=== PATIENT | female | born 1945 | race African-American/Black ===

== ENCOUNTER 2017-08-17 11:50 | Outpatient (CLI) | payer MEDICARE, BC | END 2017-08-17 11:51 | disposition home or self-care (01) | LOC: BICMAMMO 11:50 | PROVIDERS: ATTEND Internal Medicine | DX: Z12.31 Encounter for screening mammogram for malignant neoplasm of breast (principal) | CPT/HCPCS: 77063; 77067 ==

== ENCOUNTER → 2017-09-26 | Day surgery (SDC) | payer MEDICARE, BC ==
[~2017-09-26] MED LIST: Proparacaine 0.5% Opth 15 ML BOT ONE
== END ==
LOC: SDC 11:10
PROVIDERS: ATTEND Ophthalmology
PROC: 089D3ZZ Drainage of Left Iris, Percutaneous Approach (ICD-10-PCS; principal; 2017-09-26)
PROC: 089C3ZZ Drainage of Right Iris, Percutaneous Approach (ICD-10-PCS; 2017-09-26)
DX: H40.033 Anatomical narrow angle, bilateral (principal); I10 Essential (primary) hypertension; E11.9 Type 2 diabetes mellitus without complications; H40.9 Unspecified glaucoma; Z88.2 Allergy status to sulfonamides; Z79.4 Long term (current) use of insulin; Z79.82 Long term (current) use of aspirin; Z79.899 Other long term (current) drug therapy

== ENCOUNTER 2017-12-20 09:37 | Outpatient (CLI) | payer MEDICARE, BC ==
--- NOTE | 2017-12-20 11:11 | CT ---
BRAIN CT WITHOUT IV CONTRAST: History: 72-year-old female with history of dizziness and headaches, bilateral ear aches. FINDINGS: No focal mass or midline shift. No intra or extraaxial hemorrhage. Sinuses and mastoids are clear of acute process. IMPRESSION: No acute intracranial process. No mass or bleed. POS: [facility]
== END 2017-12-20 09:38 | disposition home or self-care (01) ==
LOC: CT 09:37
PROVIDERS: ATTEND Internal Medicine
DX: R42 Dizziness and giddiness (principal)
CPT/HCPCS: 70450

== ENCOUNTER 2022-08-29 14:06 | Outpatient (CLI) | payer MEDICARE, BC | END 2022-08-29 14:07 | disposition home or self-care (01) | LOC: BICMAMMO 14:06 | PROVIDERS: ATTEND Internal Medicine | DX: Z12.31 Encounter for screening mammogram for malignant neoplasm of breast (principal) | CPT/HCPCS: 77063; 77067 ==

== ENCOUNTER 2023-09-16 13:52 | Inpatient (IN) | payer MEDICARE ==
[2023-09-16] MEDS ORDERED: Cefepime 2 GM VIAL ONE (15:00)
[2023-09-16] MEDS ORDERED: Sodium Chloride 0.9% 100 ML ONE (15:00)
[2023-09-16] MEDS ORDERED: Morphine 4 MG/ML VIAL ONE (15:00)
[2023-09-16] MEDS ORDERED: Ondansetron PF 4 MG/2 ML Vial ONE (15:00)
[2023-09-16 15:56] LABS: ALT (SGPT) 16 U/L (8-55); AST (SGOT) 20 U/L (5-34); Albumin 3.5 g/dL (3.4-4.8); Alkaline Phosphatase 107 U/L (40-110); Anion Gap 17 mmol/L (10-20); BUN (Urea Nitrogen) 12 mg/dL (9.8-20.1); Bilirubin, Total 0.4 mg/dL (0.2-1.2); Calc. Creatinine Clearance 0 mL/min (70-130); Calcium 10.1 mg/dL (7.8-10.44); Carbon Dioxide 20 mmol/L (23-31); Chloride 106 mmol/L (98-107); Estimated GFR 85; Globulin 4.4 g/dL (2.4-3.5); Glucose 124 mg/dL (83-110); Potassium 3.7 mmol/L (3.5-5.1); Protein, Total 7.9 g/dL (5.8-8.1); Sodium 139 mmol/L (136-145)
[2023-09-16 16:11] LABS: #Basophils 0.04 10x3/uL (0.0-0.2); %Basophils 0.5 % (0.0-1.0); %Eosinophils 4.7 % (0.0-10.0); %Lymphocytes 18.9 % (21.0-51.0); %Monocytes 10.9 % (0.0-10.0); %Neutrophils 64.7 % (42.0-75.0); Hematocrit 39.6 % (36.0-47.0); Hemoglobin 13.3 g/dL (12.0-16.0); Mean Corpuscular HGB CONC 33.6 g/dL (32.0-36.0); Mean Corpuscular Hemoglobin 29.7 pg (27.0-31.0); Mean Corpuscular Volume 88.4 fL (78.0-98.0); Mean Platelet Volume 8.9 fL (7.4-10.4); Platelet Count 274 10x3/uL (130-400); Red Blood Cell (RBC) Count 4.48 mill/uL (4.20-5.40)
[2023-09-16] MEDS ORDERED: Acetaminophen 650 MG Suppository PR PRN (18:08)
[2023-09-16] MEDS ORDERED: Dextrose 5% in Water 1,000 ML IV PRN (18:08)
[2023-09-16] MEDS ORDERED: Glucagon 1 MG/ML KIT IM PRN (18:08)
[2023-09-16] MEDS: Vancomycin (BATCH) 1.75 GM in Premix 1 BAG IVPB SCH (19:28)
[2023-09-16 19:38] LABS: INR-International Normal Ratio 0.9; Prothrombin Time 12.2 sec (12.0-14.7)
[2023-09-16 19:46] LABS: PTT 21.3 sec (22.9-36.1)
[2023-09-16] MEDS: Furosemide 40 MG (4 mL) VIAL SLOW IVP SCH (20:33)
[2023-09-16] MEDS: metroNIDAZOLE 500 MG in Premix 1 BAG IVPB SCH (20:33)
[2023-09-16] MEDS: Oxybutynin ER 5 MG TAB PO SCH (21:49)
[2023-09-16] MEDS: Pregabalin 50 MG CAP PO SCH (21:50)
[2023-09-16] MEDS: Lorazepam 0.5 MG TAB PO SCH (21:50)
[2023-09-16] MEDS: OLANZapine 2.5 MG TAB PO SCH (21:50)
[2023-09-16] MEDS: HumaLOG 300 UNITS/3 ML VIAL SC PRN (21:51)
[2023-09-16] MEDS: Insulin Glargine 30 UNITS/0.3 ML VIAL SC SCH (22:24)
[2023-09-17] MEDS: Cefepime 2 GM in Sodium Chloride 0.9% 100 ML IVPB SCH (03:02)
[2023-09-17 06:59] LABS: #Basophils 0.03 10x3/uL (0.0-0.2); %Basophils 0.5 % (0.0-1.0); %Lymphocytes 26.1 % (21.0-51.0); %Monocytes 13.5 % (0.0-10.0); %Neutrophils 54.6 % (42.0-75.0); Hematocrit 43.8 % (36.0-47.0); Hemoglobin 14.4 g/dL (12.0-16.0); Mean Corpuscular HGB CONC 32.9 g/dL (32.0-36.0); Mean Corpuscular Hemoglobin 29.4 pg (27.0-31.0); Mean Corpuscular Volume 89.6 fL (78.0-98.0); Mean Platelet Volume 9.3 fL (7.4-10.4); Platelet Count 229 10x3/uL (130-400); RBC Distribution Width 13.2 % (11.5-14.5); Red Blood Cell (RBC) Count 4.89 mill/uL (4.20-5.40)
[2023-09-17 07:06] LABS: Anion Gap 15 mmol/L (10-20); BUN (Urea Nitrogen) 10 mg/dL (9.8-20.1); Calc. Creatinine Clearance 104 mL/min (70-130); Calcium 9.7 mg/dL (7.8-10.44); Carbon Dioxide 22 mmol/L (23-31); Chloride 108 mmol/L (98-107); Estimated GFR 91; Glucose 77 mg/dL (83-110); Magnesium 1.9 mg/dL (1.6-2.6); Potassium 3.7 mmol/L (3.5-5.1); Sodium 141 mmol/L (136-145)
[2023-09-17] MEDS ORDERED: Insulin Glargine 30 UNITS/0.3 ML VIAL SC SCH (07:30)
[2023-09-17] MEDS: Insulin Glargine 30 UNITS/0.3 ML VIAL SC SCH (08:07)
[2023-09-17] MEDS: Lorazepam 1 MG TAB PO SCH (10:06)
[2023-09-17] MEDS: PARoxetine 20 MG TAB PO SCH (10:06)
[2023-09-17] MEDS: Amlodipine 10 MG TAB PO SCH (10:06)
[2023-09-17] MEDS: Atorvastatin Calcium 10 MG TAB PO SCH (10:07)
[2023-09-17] MEDS: HumaLOG 300 UNITS/3 ML VIAL SC PRN (13:58)
[2023-09-17 14:10] LABS: Hemoglobin A1c 6.5 % (4.0-6.0)
[2023-09-18] MEDS: Enoxaparin 40 MG (0.4 mL) SYRINGE SC SCH (08:41)
[2023-09-18] MEDS: Acetaminophen 325 MG TAB PO PRN (09:44)
[2023-09-19] MEDS ORDERED: Polyvinyl Alcohol 1.4%/Povidone 0.6% Opth Drops EA EYE PRN (19:32)
[2023-09-19] MEDS: Ondansetron ODT 4 MG TAB PO PRN (19:48)
[2023-09-19] MEDS: Ciprofloxacin 500 MG TAB PO SCH (20:01)
[2023-09-19] MEDS: DorzolamidE/Timolol 2%/0.5% Ophth Soln 10 ml Bottle EA EYE SCH (20:03)
[2023-09-19] MEDS: Linezolid 600 MG TAB PO SCH (20:03)
[2023-09-19] MEDS: Docusate 100 MG CAP PO SCH (20:03)
[2023-09-19] MEDS: Latanoprost 0.005% Ophth Soln 2.5 ml Bottle EA EYE SCH (20:04)
[2023-09-19] MEDS: Ipratropium Bromide 0.06% Nasal Inhaler 15ml EA NARE SCH (20:04)
[2023-09-19] MEDS: Azelastine 137 MCG/NASAL Spray 30 ML NS SCH (22:39)
[2023-09-19] MEDS: Mag-Al Plus 1200/1200/120 MG (30 mL) UDCUP PO PRN (23:50)
[2023-09-20] MEDS: Ondansetron PF 4 MG/2 ML Vial IVP PRN (01:14)
[2023-09-20] MEDS: Polyethylene Glycol 3350 17 GM Packet PO PRN (02:35)
[2023-09-20] MEDS: Mineral Oil ENEMA PR SCH (12:06)
[2023-09-21] MEDS: Ipratropium Bromide 0.06% Nasal Inhaler 15ml EA NARE SCH (08:35)
[2023-09-21] MEDS: DorzolamidE/Timolol 2%/0.5% Ophth Soln 10 ml Bottle EA EYE SCH (08:35)
[2023-09-21 10:29] LABS: ALT (SGPT) 21 U/L (8-55); AST (SGOT) 28 U/L (5-34); Albumin 3.5 g/dL (3.4-4.8); Alkaline Phosphatase 92 U/L (40-110); Anion Gap 16 mmol/L (10-20); BUN (Urea Nitrogen) 28 mg/dL (9.8-20.1); Bilirubin, Total 0.5 mg/dL (0.2-1.2); Calc. Creatinine Clearance 78 mL/min (70-130); Calcium 10.5 mg/dL (7.8-10.44); Carbon Dioxide 23 mmol/L (23-31); Chloride 90 mmol/L (98-107); Estimated GFR 69; Globulin 4.8 g/dL (2.4-3.5); Glucose 194 mg/dL (83-110); Potassium 4.6 mmol/L (3.5-5.1); Protein, Total 8.3 g/dL (5.8-8.1); Sodium 124 mmol/L (136-145)
[2023-09-21 10:36] LABS: #Basophils Less than 0.03 10x3/uL (0.0-0.2); %Basophils 0.1 % (0.0-1.0); %Eosinophils 0.8 % (0.0-10.0); %Monocytes 7.2 % (0.0-10.0); %Neutrophils 81.6 % (42.0-75.0); Hematocrit 47.1 % (36.0-47.0); Hemoglobin 16.1 g/dL (12.0-16.0); Mean Corpuscular HGB CONC 34.2 g/dL (32.0-36.0); Mean Corpuscular Hemoglobin 29.2 pg (27.0-31.0); Mean Corpuscular Volume 85.5 fL (78.0-98.0); Mean Platelet Volume 9.1 fL (7.4-10.4); Platelet Count 352 10x3/uL (130-400); RBC Distribution Width 12.7 % (11.5-14.5); Red Blood Cell (RBC) Count 5.51 mill/uL (4.20-5.40)
[2023-09-21] MEDS: Bisacodyl 10 MG SUPP PR PRN (11:59)
[2023-09-21] MEDS: Azelastine 137 MCG/NASAL Spray 30 ML NS SCH (16:58)
[2023-09-21] MEDS: Lactated Ringer's 1,000 ML IV SCH (19:13)
[2023-09-21] MEDS: Latanoprost 0.005% Ophth Soln 2.5 ml Bottle EA EYE SCH (22:34)
[2023-09-22 00:27] LABS: Bacteria/HPF None Seen HPF (None Seen); Bilirubin Negative (Negative); Blood, Urine Negative (Negative); Clarity Clear (Clear); Glucose, Urine (Dipstick) Normal (Negative); Ketone, Urine Negative (Negative); Leukocyte 250 Leu/uL (Negative); Nitrite Negative (Negative); Protein, Urine (Dipstick) 20 mg/dL (Neg-Trace); RBC/HPF 0-3 HPF (0-3); Urobilinogen Normal mg/dL (Less than 2); WBC/HPF 21-50 HPF (0-3)
[2023-09-22 08:03] LABS: #Basophils Less than 0.03 10x3/uL (0.0-0.2); %Basophils 0.2 % (0.0-1.0); %Lymphocytes 11.6 % (21.0-51.0); %Monocytes 10.3 % (0.0-10.0); %Neutrophils 75.7 % (42.0-75.0); Hematocrit 41.2 % (36.0-47.0); Hemoglobin 14.2 g/dL (12.0-16.0); Mean Corpuscular HGB CONC 34.5 g/dL (32.0-36.0); Mean Corpuscular Hemoglobin 29.5 pg (27.0-31.0); Mean Corpuscular Volume 85.5 fL (78.0-98.0); Mean Platelet Volume 8.8 fL (7.4-10.4); Platelet Count 339 10x3/uL (130-400); RBC Distribution Width 12.8 % (11.5-14.5); Red Blood Cell (RBC) Count 4.82 mill/uL (4.20-5.40)
[2023-09-22 08:28] LABS: Anion Gap 15 mmol/L (10-20); BUN (Urea Nitrogen) 29 mg/dL (9.8-20.1); Calc. Creatinine Clearance 83 mL/min (70-130); Carbon Dioxide 26 mmol/L (23-31); Chloride 88 mmol/L (98-107); Estimated GFR 74; Glucose 179 mg/dL (83-110); Potassium 4.7 mmol/L (3.5-5.1); Sodium 124 mmol/L (136-145)
[2023-09-22] MEDS: Sodium Chloride 0.9% 1,000 ML IV SCH (09:45)
[2023-09-22 12:48] LABS: Anion Gap 17 mmol/L (10-20); BUN (Urea Nitrogen) 31 mg/dL (9.8-20.1); Calc. Creatinine Clearance 78 mL/min (70-130); Calcium 9.8 mg/dL (7.8-10.44); Carbon Dioxide 23 mmol/L (23-31); Chloride 89 mmol/L (98-107); Estimated GFR 69; Glucose 209 mg/dL (83-110); Potassium 4.9 mmol/L (3.5-5.1); Sodium 124 mmol/L (136-145)
[2023-09-22] MEDS: Pantoprazole 40 MG VIAL IVP SCH (15:00)
[2023-09-22] MEDS: Furosemide 40 MG (4 mL) VIAL SLOW IVP SCH (15:37)
[2023-09-22 19:03] LABS: Anion Gap 16 mmol/L (10-20); BUN (Urea Nitrogen) 36 mg/dL (9.8-20.1); Calc. Creatinine Clearance 68 mL/min (70-130); Calcium 9.7 mg/dL (7.8-10.44); Carbon Dioxide 20 mmol/L (23-31); Chloride 90 mmol/L (98-107); Estimated GFR 59; Glucose 225 mg/dL (83-110); Potassium 5.2 mmol/L (3.5-5.1); Sodium 121 mmol/L (136-145)
[2023-09-22] MEDS: Pregabalin 25 MG CAP PO SCH (21:06)
[2023-09-23 06:09] LABS: Anion Gap 18 mmol/L (10-20); BUN (Urea Nitrogen) 39 mg/dL (9.8-20.1); Calc. Creatinine Clearance 69 mL/min (70-130); Calcium 10.4 mg/dL (7.8-10.44); Carbon Dioxide 24 mmol/L (23-31); Chloride 87 mmol/L (98-107); Estimated GFR 60; Glucose 154 mg/dL (83-110); Potassium 5.2 mmol/L (3.5-5.1); Sodium 124 mmol/L (136-145)
[2023-09-23] MEDS: Ipratropium/Albuterol 3 ML NEB NEB SCH (07:57)
[2023-09-23] MEDS ORDERED: Bisacodyl 10 MG SUPP PR PRN (10:35)
[2023-09-23] MEDS: Furosemide 40 MG (4 mL) VIAL SLOW IVP SCH (11:07)
[2023-09-23] MEDS: Aztreonam 1 GM in Sodium Chloride 0.9% 100 ML IVPB SCH (11:10)
[2023-09-23] MEDS: Sodium Polystyrene Sulfonate 15 GM (60 mL) BOT PO SCH (11:25)
[2023-09-23] MEDS ORDERED: Cyclobenzaprine 10 MG TAB PO PRN (18:27)
[2023-09-23] MEDS ORDERED: Polyvinyl Alcohol 1.4%/Povidone 0.6% Opth Drops EA EYE PRN (18:28)
[2023-09-24 04:03] LABS: #Basophils Less than 0.03 10x3/uL (0.0-0.2); %Basophils 0.2 % (0.0-1.0); %Eosinophils 2.5 % (0.0-10.0); %Lymphocytes 6.9 % (21.0-51.0); %Monocytes 13.6 % (0.0-10.0); %Neutrophils 76.4 % (42.0-75.0); Hemoglobin 13.4 g/dL (12.0-16.0); Mean Corpuscular HGB CONC 33.5 g/dL (32.0-36.0); Mean Corpuscular Hemoglobin 29.7 pg (27.0-31.0); Mean Corpuscular Volume 88.7 fL (78.0-98.0); Mean Platelet Volume 9.2 fL (7.4-10.4); Platelet Count 328 10x3/uL (130-400); RBC Distribution Width 12.7 % (11.5-14.5); Red Blood Cell (RBC) Count 4.51 mill/uL (4.20-5.40)
[2023-09-24 04:35] LABS: Anion Gap 20 mmol/L (10-20); BUN (Urea Nitrogen) 38 mg/dL (9.8-20.1); Calc. Creatinine Clearance 73 mL/min (70-130); Calcium 10.4 mg/dL (7.8-10.44); Carbon Dioxide 22 mmol/L (23-31); Chloride 90 mmol/L (98-107); Estimated GFR 62; Glucose 147 mg/dL (83-110); Potassium 4.5 mmol/L (3.5-5.1); Sodium 127 mmol/L (136-145)
[2023-09-24] MEDS: Bisacodyl 10 MG SUPP PR SCH (15:40)
[2023-09-24] MEDS: Labetalol HCl 100 MG/20 ML VIAL SLOW IVP PRN (21:15)
[2023-09-25 05:58] LABS: #Basophils Less than 0.03 10x3/uL (0.0-0.2); %Basophils 0.2 % (0.0-1.0); %Eosinophils 2.3 % (0.0-10.0); %Lymphocytes 6.2 % (21.0-51.0); %Monocytes 11.1 % (0.0-10.0); %Neutrophils 79.8 % (42.0-75.0); Hematocrit 39.2 % (36.0-47.0); Hemoglobin 13.4 g/dL (12.0-16.0); Mean Corpuscular HGB CONC 34.2 g/dL (32.0-36.0); Mean Corpuscular Hemoglobin 29.7 pg (27.0-31.0); Mean Corpuscular Volume 86.9 fL (78.0-98.0); Mean Platelet Volume 8.7 fL (7.4-10.4); Platelet Count 320 10x3/uL (130-400); RBC Distribution Width 12.8 % (11.5-14.5); Red Blood Cell (RBC) Count 4.51 mill/uL (4.20-5.40)
[2023-09-25 06:17] LABS: Anion Gap 18 mmol/L (10-20); BUN (Urea Nitrogen) 52 mg/dL (9.8-20.1); Calc. Creatinine Clearance 53 mL/min (70-130); Calcium 10.4 mg/dL (7.8-10.44); Carbon Dioxide 22 mmol/L (23-31); Chloride 92 mmol/L (98-107); Estimated GFR 44; Glucose 160 mg/dL (83-110); Potassium 4.8 mmol/L (3.5-5.1); Sodium 127 mmol/L (136-145)
[2023-09-25 10:56] LABS: Anion Gap 20 mmol/L (10-20); BUN (Urea Nitrogen) 54 mg/dL (9.8-20.1); Calc. Creatinine Clearance 52 mL/min (70-130); Calcium 11.1 mg/dL (7.8-10.44); Carbon Dioxide 21 mmol/L (23-31); Chloride 92 mmol/L (98-107); Estimated GFR 43; Glucose 107 mg/dL (83-110); Potassium 4.9 mmol/L (3.5-5.1); Sodium 128 mmol/L (136-145)
[2023-09-25] MEDS: Sodium Chloride 0.9% 1,000 ML IV SCH (13:07)
[2023-09-25] MEDS: Aztreonam 1 GM in Sodium Chloride 0.9% 100 ML IVPB SCH (21:11)
[2023-09-25 21:25] LABS: Anion Gap 20 mmol/L (10-20); BUN (Urea Nitrogen) 57 mg/dL (9.8-20.1); Calc. Creatinine Clearance 56 mL/min (70-130); Calcium 10.4 mg/dL (7.8-10.44); Carbon Dioxide 20 mmol/L (23-31); Chloride 94 mmol/L (98-107); Estimated GFR 47; Glucose 119 mg/dL (83-110); Potassium 4.8 mmol/L (3.5-5.1); Sodium 129 mmol/L (136-145)
[2023-09-26 05:08] LABS: #Basophils Less than 0.03 10x3/uL (0.0-0.2); %Basophils 0.2 % (0.0-1.0); %Eosinophils 2.9 % (0.0-10.0); %Lymphocytes 7.9 % (21.0-51.0); %Monocytes 10.6 % (0.0-10.0); Hematocrit 40.2 % (36.0-47.0); Hemoglobin 13.4 g/dL (12.0-16.0); Mean Corpuscular HGB CONC 33.3 g/dL (32.0-36.0); Mean Corpuscular Hemoglobin 29.3 pg (27.0-31.0); Mean Platelet Volume 8.9 fL (7.4-10.4); Platelet Count 327 10x3/uL (130-400); RBC Distribution Width 13.1 % (11.5-14.5); Red Blood Cell (RBC) Count 4.57 mill/uL (4.20-5.40)
[2023-09-26 05:41] LABS: Anion Gap 18 mmol/L (10-20); BUN (Urea Nitrogen) 56 mg/dL (9.8-20.1); Calc. Creatinine Clearance 64 mL/min (70-130); Calcium 10.2 mg/dL (7.8-10.44); Carbon Dioxide 19 mmol/L (23-31); Chloride 96 mmol/L (98-107); Estimated GFR 56; Glucose 105 mg/dL (83-110); Sodium 129 mmol/L (136-145)
[2023-09-26] MEDS: Sodium Bicarbonate Tab 325 MG TAB PO SCH (21:03)
[2023-09-27 09:49] LABS: #Basophils Less than 0.03 10x3/uL (0.0-0.2); %Basophils 0.2 % (0.0-1.0); %Eosinophils 1.8 % (0.0-10.0); %Lymphocytes 9.9 % (21.0-51.0); %Monocytes 11.7 % (0.0-10.0); %Neutrophils 75.8 % (42.0-75.0); Hematocrit 41.5 % (36.0-47.0); Hemoglobin 13.9 g/dL (12.0-16.0); Mean Corpuscular HGB CONC 33.5 g/dL (32.0-36.0); Mean Corpuscular Hemoglobin 29.1 pg (27.0-31.0); Mean Platelet Volume 8.3 fL (7.4-10.4); Platelet Count 373 10x3/uL (130-400); RBC Distribution Width 13.1 % (11.5-14.5); Red Blood Cell (RBC) Count 4.77 mill/uL (4.20-5.40)
[2023-09-27 11:22] LABS: Anion Gap 17 mmol/L (10-20); BUN (Urea Nitrogen) 70 mg/dL (9.8-20.1); Calc. Creatinine Clearance 56 mL/min (70-130); Calcium 10.6 mg/dL (7.8-10.44); Carbon Dioxide 22 mmol/L (23-31); Chloride 94 mmol/L (98-107); Estimated GFR 44; Glucose 115 mg/dL (83-110); Potassium 4.2 mmol/L (3.5-5.1); Sodium 129 mmol/L (136-145)
[2023-09-27] MEDS ORDERED: Iopamidol-370 76% 500 ML MDV (1 ML CHARGE) ONE (12:29)
[2023-09-27] MEDS: LevoFLOXacin 750 MG TAB PO SCH (16:58)
[2023-09-27 21:26] LABS: #Basophils 0.05 10x3/uL (0.0-0.2); %Basophils 0.5 % (0.0-1.0); %Eosinophils 1.5 % (0.0-10.0); %Lymphocytes 10.3 % (21.0-51.0); %Monocytes 14.7 % (0.0-10.0); %Neutrophils 72.3 % (42.0-75.0); Hematocrit 39.8 % (36.0-47.0); Hemoglobin 13.3 g/dL (12.0-16.0); Mean Corpuscular HGB CONC 33.4 g/dL (32.0-36.0); Mean Corpuscular Hemoglobin 29.1 pg (27.0-31.0); Mean Corpuscular Volume 87.1 fL (78.0-98.0); Mean Platelet Volume 8.3 fL (7.4-10.4); Platelet Count 370 10x3/uL (130-400); RBC Distribution Width 13.2 % (11.5-14.5); Red Blood Cell (RBC) Count 4.57 mill/uL (4.20-5.40)
[2023-09-27] MEDS ORDERED: Ondansetron PF 4 MG/2 ML Vial ONE (21:28)
[2023-09-27 21:35] LABS: Lactic Acid 1.1 mmol/L (0.5-2.2)
[2023-09-27 21:39] LABS: ALT (SGPT) 31 U/L (8-55); AST (SGOT) 28 U/L (5-34); Albumin 2.8 g/dL (3.4-4.8); Alkaline Phosphatase 90 U/L (40-110); Anion Gap 24 mmol/L (10-20); BUN (Urea Nitrogen) 78 mg/dL (9.8-20.1); Bilirubin, Total 0.5 mg/dL (0.2-1.2); Calc. Creatinine Clearance 50 mL/min (70-130); Calcium 9.9 mg/dL (7.8-10.44); Carbon Dioxide 15 mmol/L (23-31); Chloride 95 mmol/L (98-107); Estimated GFR 38; Globulin 5.1 g/dL (2.4-3.5); Glucose 100 mg/dL (83-110); Potassium 3.9 mmol/L (3.5-5.1); Protein, Total 7.9 g/dL (5.8-8.1); Sodium 130 mmol/L (136-145)
[2023-09-27] MEDS ORDERED: Electrolyte Replacement Protocol 1 EACH FS PRN (22:30)
[2023-09-27 23:09] LABS: Actual Bicarbonate (HCO3v) 20.3 mEq/L (22-28); Base Excess -4.4 mEq/L (-2.0 to +3.0); Calcium, Ionized (venous) 1.16 mmol/L (1.16-1.32); Chloride (VBG) 101 mmol/L (98-106); Hematocrit-VBG 42 % (36.0-47.0); Hemoglobin (Hb) 14.4 g/dL (11.7-16.1); Potassium (VBG) 3.95 mmol/L (3.70-5.30); Sodium 135 mmol/L (133-146); pH (venous) 7.362 (7.32-7.43)
[2023-09-27 23:11] LABS: Magnesium 2.6 mg/dL (1.6-2.6)
[2023-09-28 04:22] LABS: #Basophils 0.06 10x3/uL (0.0-0.2); %Basophils 0.6 % (0.0-1.0); %Eosinophils 0.9 % (0.0-10.0); %Lymphocytes 7.9 % (21.0-51.0); %Monocytes 16.9 % (0.0-10.0); %Neutrophils 73.2 % (42.0-75.0); Hemoglobin 13.3 g/dL (12.0-16.0); Mean Corpuscular HGB CONC 32.4 g/dL (32.0-36.0); Mean Corpuscular Hemoglobin 28.9 pg (27.0-31.0); Mean Corpuscular Volume 89.1 fL (78.0-98.0); Mean Platelet Volume 8.3 fL (7.4-10.4); Platelet Count 345 10x3/uL (130-400); RBC Distribution Width 13.2 % (11.5-14.5)
[2023-09-28 04:42] LABS: Anion Gap 19 mmol/L (10-20); BUN (Urea Nitrogen) 83 mg/dL (9.8-20.1); Calc. Creatinine Clearance 49 mL/min (70-130); Carbon Dioxide 19 mmol/L (23-31); Chloride 97 mmol/L (98-107); Estimated GFR 37; Glucose 93 mg/dL (83-110); Sodium 131 mmol/L (136-145)
[2023-09-28] MEDS: Enoxaparin 40 MG (0.4 mL) SYRINGE SC SCH (09:24)
[2023-09-28] MEDS: PARoxetine 20 MG TAB PO SCH (09:33)
[2023-09-28 10:10] LABS: Actual Bicarbonate (HCO3a) 21.4 mEq/L (22-28); Base Excess (BEa) -3.4 mEq/L (-2.0 to +3.0); CO2 Tension 37.7 mmHg (35.0-45.0); Calcium, Ionized (arterial) 1.22 mmol/L (1.12-1.30); Carboxyhemoglobin (COHb) 0.6 gm% (0.0-3.0); Hematocrit-ABG 37 % (36.0-47.0); Hemoglobin (Hb) 12.6 g/dL (12.0-16.0); O2 Tension (PaO2), arterial 61.8 mmHg (> 70.0); Potassium - ABG Lab 3.73 mmol/L (3.70-5.30); pH, Arterial 7.372 (7.35-7.45)
[2023-09-28 10:11] LABS: Puncture Site RRA
[2023-09-28] MEDS ORDERED: Dextrose 5%-Lactated Ringers 1,000 ML IV SCH (12:30)
[2023-09-28] MEDS: Lactated Ringer's 1,000 ML IV SCH (13:01)
[2023-09-28] MEDS: Aztreonam 1 GM in Sodium Chloride 0.9% 100 ML IVPB SCH (13:01)
[2023-09-28] MEDS: Dextrose 50% Abboject 50 ML SYRINGE SLOW IVP PRN (21:07)
[2023-09-28] MEDS: Linezolid 600 MG in Premix 1 BAG IVPB SCH (21:08)
[2023-09-28] MEDS: Metoclopramide HCl 10 MG (2 mL) VIAL IVP SCH (21:13)
[2023-09-29 04:28] LABS: Anion Gap 16 mmol/L (10-20); BUN (Urea Nitrogen) 59 mg/dL (9.8-20.1); Calc. Creatinine Clearance 66 mL/min (70-130); Calcium 9.2 mg/dL (7.8-10.44); Carbon Dioxide 22 mmol/L (23-31); Chloride 103 mmol/L (98-107); Estimated GFR 57; Glucose 100 mg/dL (83-110); Potassium 3.1 mmol/L (3.5-5.1); Sodium 138 mmol/L (136-145)
[2023-09-29 07:10] LABS: #Basophils 0.04 10x3/uL (0.0-0.2); %Basophils 0.2 % (0.0-1.0); %Eosinophils 2.2 % (0.0-10.0); %Lymphocytes 6.5 % (21.0-51.0); %Monocytes 12.6 % (0.0-10.0); %Neutrophils 76.5 % (42.0-75.0); Hematocrit 31.1 % (36.0-47.0); Hemoglobin 10.5 g/dL (12.0-16.0); Mean Corpuscular HGB CONC 33.8 g/dL (32.0-36.0); Mean Corpuscular Hemoglobin 29.9 pg (27.0-31.0); Mean Corpuscular Volume 88.6 fL (78.0-98.0); Mean Platelet Volume 8.5 fL (7.4-10.4); Platelet Count 301 10x3/uL (130-400); RBC Distribution Width 13.3 % (11.5-14.5); Red Blood Cell (RBC) Count 3.51 mill/uL (4.20-5.40)
[2023-09-29] MEDS ORDERED: Potassium Chloride 20 MEQ TAB PO SCH (08:00)
[2023-09-29] MEDS: Potassium Chloride 20 MEQ in Premix 1 BAG IVPB SCH (08:54)
[2023-09-29] MEDS ORDERED: Potassium Chloride 40 MEQ in Premix 1 BAG IVPB SCH (09:00)
[2023-09-30 05:43] LABS: Anion Gap 18 mmol/L (10-20); BUN (Urea Nitrogen) 17 mg/dL (9.8-20.1); Calc. Creatinine Clearance 96 mL/min (70-130); Calcium 8.9 mg/dL (7.8-10.44); Carbon Dioxide 20 mmol/L (23-31); Chloride 107 mmol/L (98-107); Estimated GFR 92; Glucose 142 mg/dL (83-110); Potassium 3.1 mmol/L (3.5-5.1); Sodium 142 mmol/L (136-145)
[2023-09-30 06:16] LABS: Hematocrit 31.9 % (36.0-47.0); Hemoglobin 10.8 g/dL (12.0-16.0); Mean Corpuscular HGB CONC 33.9 g/dL (32.0-36.0); Mean Corpuscular Hemoglobin 29.3 pg (27.0-31.0); Mean Corpuscular Volume 86.4 fL (78.0-98.0); Mean Platelet Volume 8.6 fL (7.4-10.4); Platelet Count 340 10x3/uL (130-400); RBC Distribution Width 13.6 % (11.5-14.5); Red Blood Cell (RBC) Count 3.69 mill/uL (4.20-5.40)
[2023-09-30 07:18] LABS: Anisocytosis MODERATE=16-30 cells HPF (0-5); Band 15 % (5-11); Burr Cells SLIGHT = 2-5 cells HPF (0-1); Eosinophils 2 % (0-10); Lymphocytes 5 % (21-51); Macrocytosis SLIGHT = 6-15 cells HPF (0-5); Monocytes 8 % (0-10); Myelocyte 1 % (0-0); Neutrophil 70 % (42-75); Platelet Adequacy Comment Platelets Normal; Polychromasia SLIGHT = 2-3 cells HPF (0-2); Smudge Cells 3.9 %
[2023-09-30] MEDS: Potassium Chloride 20 MEQ in Premix 1 BAG IVPB SCH (08:32)
[2023-09-30 09:48] LABS: Bilirubin Negative (Negative); Blood, Urine 1+ (Negative); CAUTI Indications for Culture Alt mental st,lethar; Clarity Clear (Clear); Glucose, Urine (Dipstick) Normal (Negative); Ketone, Urine 10 mg/dL (Negative); Leukocyte 25 Leu/uL (Negative); Nitrite Negative (Negative); Protein, Urine (Dipstick) 30 mg/dL (Neg-Trace); Specific Gravity, Urine 1.012 (1.002-1.036); Squamous Epithelial 0-3 HPF (0-3); Urobilinogen Normal mg/dL (Less than 2); pH, Urine 7.5 (5.0-9.0)
[2023-09-30 10:06] LABS: Bacteria/HPF Rare-Few HPF (None Seen)
[2023-09-30 10:08] LABS: Urine Culture Reflex No No
[2023-09-30] MEDS: Azithromycin 500 MG in Sodium Chloride 0.9% 250 ML 250 ML IVPB SCH (15:12)
[2023-10-01 05:18] LABS: #Basophils 0.09 10x3/uL (0.0-0.2); %Basophils 0.4 % (0.0-1.0); %Eosinophils 1.1 % (0.0-10.0); %Lymphocytes 6.6 % (21.0-51.0); %Monocytes 5.8 % (0.0-10.0); %Neutrophils 83.2 % (42.0-75.0); Hematocrit 30.9 % (36.0-47.0); Hemoglobin 10.4 g/dL (12.0-16.0); Mean Corpuscular HGB CONC 33.7 g/dL (32.0-36.0); Mean Corpuscular Hemoglobin 28.9 pg (27.0-31.0); Mean Corpuscular Volume 85.8 fL (78.0-98.0); Mean Platelet Volume 8.4 fL (7.4-10.4); Platelet Count 311 10x3/uL (130-400); RBC Distribution Width 13.8 % (11.5-14.5)
[2023-10-01 05:56] LABS: Anion Gap 14 mmol/L (10-20); BUN (Urea Nitrogen) 11 mg/dL (9.8-20.1); Calc. Creatinine Clearance 102 mL/min (70-130); Calcium 8.5 mg/dL (7.8-10.44); Carbon Dioxide 22 mmol/L (23-31); Chloride 105 mmol/L (98-107); Estimated GFR 92; Glucose 134 mg/dL (83-110); Potassium 3.4 mmol/L (3.5-5.1); Sodium 138 mmol/L (136-145)
[2023-10-01] MEDS: Potassium Chloride 20 MEQ TAB PO SCH (08:51)
[2023-10-02 07:53] LABS: Anion Gap 19 mmol/L (10-20); BUN (Urea Nitrogen) 8 mg/dL (9.8-20.1); Calc. Creatinine Clearance 118 mL/min (70-130); Calcium 8.3 mg/dL (7.8-10.44); Carbon Dioxide 21 mmol/L (23-31); Chloride 106 mmol/L (98-107); Estimated GFR 95; Glucose 112 mg/dL (83-110); Potassium 3.6 mmol/L (3.5-5.1); Sodium 142 mmol/L (136-145)
[2023-10-02 08:08] LABS: #Basophils 0.08 10x3/uL (0.0-0.2); %Basophils 0.5 % (0.0-1.0); %Monocytes 5.6 % (0.0-10.0); %Neutrophils 82.8 % (42.0-75.0); Hematocrit 36.1 % (36.0-47.0); Hemoglobin 12.5 g/dL (12.0-16.0); Mean Corpuscular HGB CONC 34.6 g/dL (32.0-36.0); Mean Corpuscular Hemoglobin 29.3 pg (27.0-31.0); Mean Corpuscular Volume 84.7 fL (78.0-98.0); Platelet Count 243 10x3/uL (130-400); Red Blood Cell (RBC) Count 4.26 mill/uL (4.20-5.40)
[2023-10-02] MEDS ORDERED: Electrolyte Replacement Protocol 1 EACH FS SCH (10:45)
[2023-10-02 11:01] LABS: Magnesium 1.1 mg/dL (1.6-2.6)
[2023-10-02] MEDS: Floranex 1 GM Packet PO SCH (13:49)
[2023-10-02] MEDS: Magnesium Sulfate In Water 4 GM in Premix 1 BAG IVPB SCH (13:59)
[2023-10-02] MEDS ORDERED: Divalproex Sodium 125 mg Sprinkle Capsule PO SCH (21:00)
[2023-10-03 05:34] LABS: #Basophils 0.05 10x3/uL (0.0-0.2); %Basophils 0.3 % (0.0-1.0); %Lymphocytes 9.6 % (21.0-51.0); %Monocytes 7.1 % (0.0-10.0); %Neutrophils 78.7 % (42.0-75.0); Hematocrit 30.4 % (36.0-47.0); Hemoglobin 10.3 g/dL (12.0-16.0); Mean Corpuscular HGB CONC 33.9 g/dL (32.0-36.0); Mean Corpuscular Hemoglobin 28.8 pg (27.0-31.0); Mean Corpuscular Volume 84.9 fL (78.0-98.0); Mean Platelet Volume 8.5 fL (7.4-10.4); Platelet Count 294 10x3/uL (130-400); Red Blood Cell (RBC) Count 3.58 mill/uL (4.20-5.40)
[2023-10-03 05:44] VITALS: BMI 31.1
[2023-10-03 06:04] LABS: Anion Gap 12 mmol/L (10-20); BUN (Urea Nitrogen) 7 mg/dL (9.8-20.1); Calc. Creatinine Clearance 115 mL/min (70-130); Calcium 8.6 mg/dL (7.8-10.44); Carbon Dioxide 23 mmol/L (23-31); Chloride 106 mmol/L (98-107); Estimated GFR 95; Glucose 108 mg/dL (83-110); Potassium 2.9 mmol/L (3.5-5.1); Sodium 138 mmol/L (136-145)
[2023-10-03] MEDS ORDERED: Potassium Chloride 20 MEQ TAB PO SCH (08:00)
[2023-10-03 08:38] LABS: Magnesium 1.9 mg/dL (1.6-2.6)
[2023-10-03] MEDS: Potassium Chloride 20 MEQ in Premix 1 BAG IVPB SCH (08:52)
[2023-10-03] MEDS: Magnesium 2 GM/50 ML(in water) 2 GM in Premix 1 BAG IVPB SCH (12:28)
[2023-10-03] MEDS ORDERED: Electrolyte Replacement Protocol 1 EACH FS SCH (13:45)
[2023-10-03 20:40] LABS: Anion Gap 16 mmol/L (10-20); BUN (Urea Nitrogen) 6 mg/dL (9.8-20.1); Calc. Creatinine Clearance 119 mL/min (70-130); Calcium 8.5 mg/dL (7.8-10.44); Carbon Dioxide 20 mmol/L (23-31); Chloride 106 mmol/L (98-107); Estimated GFR 96; Glucose 97 mg/dL (83-110); Sodium 138 mmol/L (136-145)
[2023-10-03] MEDS: Insulin Glargine 30 UNITS/0.3 ML VIAL SC SCH (21:34)
[2023-10-04 05:48] LABS: #Basophils 0.03 10x3/uL (0.0-0.2); %Basophils 0.2 % (0.0-1.0); %Eosinophils 2.1 % (0.0-10.0); %Lymphocytes 8.6 % (21.0-51.0); %Monocytes 10.1 % (0.0-10.0); Hemoglobin 10.5 g/dL (12.0-16.0); Mean Corpuscular HGB CONC 32.8 g/dL (32.0-36.0); Mean Corpuscular Volume 88.4 fL (78.0-98.0); Platelet Count 284 10x3/uL (130-400); RBC Distribution Width 14.2 % (11.5-14.5); Red Blood Cell (RBC) Count 3.62 mill/uL (4.20-5.40)
[2023-10-04 06:10] LABS: ALT (SGPT) 19 U/L (8-55); AST (SGOT) 29 U/L (5-34); Albumin 1.8 g/dL (3.4-4.8); Alkaline Phosphatase 86 U/L (40-110); Anion Gap 12 mmol/L (10-20); BUN (Urea Nitrogen) 6 mg/dL (9.8-20.1); Bilirubin, Total 0.4 mg/dL (0.2-1.2); Calc. Creatinine Clearance 119 mL/min (70-130); Calcium 8.6 mg/dL (7.8-10.44); Carbon Dioxide 25 mmol/L (23-31); Chloride 105 mmol/L (98-107); Estimated GFR 96; Globulin 4.8 g/dL (2.4-3.5); Glucose 117 mg/dL (83-110); Potassium 3.9 mmol/L (3.5-5.1); Protein, Total 6.6 g/dL (5.8-8.1); Sodium 138 mmol/L (136-145)
[2023-10-04] MEDS: D5 1/2 NS w/20 mEq KCL 1,000 ML IV SCH (10:10)
[2023-10-04] MEDS: Insulin Glargine 30 UNITS/0.3 ML VIAL SC SCH (10:12)
[2023-10-04] MEDS: LevoFLOXacin 750 MG TAB PO SCH (18:20)
[2023-10-04] MEDS ORDERED: Linezolid 600 MG TAB PO SCH (21:00)
[2023-10-05 05:40] LABS: #Basophils 0.05 10x3/uL (0.0-0.2); %Basophils 0.5 % (0.0-1.0); %Eosinophils 2.8 % (0.0-10.0); %Lymphocytes 11.6 % (21.0-51.0); %Monocytes 12.6 % (0.0-10.0); %Neutrophils 70.9 % (42.0-75.0); Hemoglobin 10.7 g/dL (12.0-16.0); Mean Corpuscular HGB CONC 33.4 g/dL (32.0-36.0); Mean Corpuscular Volume 86.7 fL (78.0-98.0); Platelet Count 264 10x3/uL (130-400); RBC Distribution Width 14.3 % (11.5-14.5); Red Blood Cell (RBC) Count 3.69 mill/uL (4.20-5.40)
[2023-10-05 06:11] LABS: ALT (SGPT) 22 U/L (8-55); AST (SGOT) 33 U/L (5-34); Albumin 1.8 g/dL (3.4-4.8); Alkaline Phosphatase 76 U/L (40-110); Anion Gap 11 mmol/L (10-20); BUN (Urea Nitrogen) 6 mg/dL (9.8-20.1); Bilirubin, Total 0.3 mg/dL (0.2-1.2); Calc. Creatinine Clearance 114 mL/min (70-130); Calcium 8.5 mg/dL (7.8-10.44); Carbon Dioxide 24 mmol/L (23-31); Chloride 106 mmol/L (98-107); Estimated GFR 95; Globulin 4.8 g/dL (2.4-3.5); Glucose 131 mg/dL (83-110); Potassium 3.9 mmol/L (3.5-5.1); Protein, Total 6.6 g/dL (5.8-8.1); Sodium 137 mmol/L (136-145)
[2023-10-05] MEDS ORDERED: Amlodipine 10 MG TAB PO SCH (07:21)
[2023-10-05] MEDS: Amlodipine 5 MG TAB PO SCH (09:52)
[2023-10-05] MEDS: Lidocaine 1% (PF) 30 ML VIAL ONE (15:40)
[2023-10-06 04:34] LABS: #Basophils 0.03 10x3/uL (0.0-0.2); %Basophils 0.3 % (0.0-1.0); %Eosinophils 2.4 % (0.0-10.0); %Lymphocytes 13.3 % (21.0-51.0); %Monocytes 12.8 % (0.0-10.0); %Neutrophils 69.3 % (42.0-75.0); Hematocrit 30.2 % (36.0-47.0); Mean Corpuscular HGB CONC 33.1 g/dL (32.0-36.0); Mean Corpuscular Hemoglobin 29.2 pg (27.0-31.0); Mean Corpuscular Volume 88.3 fL (78.0-98.0); Platelet Count 255 10x3/uL (130-400); RBC Distribution Width 14.2 % (11.5-14.5); Red Blood Cell (RBC) Count 3.42 mill/uL (4.20-5.40)
[2023-10-06 04:50] LABS: ALT (SGPT) 25 U/L (8-55); AST (SGOT) 26 U/L (5-34); Albumin 1.9 g/dL (3.4-4.8); Alkaline Phosphatase 72 U/L (40-110); Anion Gap 11 mmol/L (10-20); BUN (Urea Nitrogen) 7 mg/dL (9.8-20.1); Bilirubin, Total 0.3 mg/dL (0.2-1.2); Calc. Creatinine Clearance 120 mL/min (70-130); Calcium 8.6 mg/dL (7.8-10.44); Carbon Dioxide 23 mmol/L (23-31); Chloride 105 mmol/L (98-107); Estimated GFR 95; Globulin 4.8 g/dL (2.4-3.5); Glucose 108 mg/dL (83-110); Protein, Total 6.7 g/dL (5.8-8.1); Sodium 135 mmol/L (136-145)
[2023-10-06] MEDS: Morphine 4 MG/ML VIAL SLOW IVP PRN (12:12)
[2023-10-07 05:53] LABS: #Basophils 0.05 10x3/uL (0.0-0.2); %Basophils 0.5 % (0.0-1.0); %Eosinophils 2.6 % (0.0-10.0); %Lymphocytes 14.3 % (21.0-51.0); %Monocytes 12.2 % (0.0-10.0); %Neutrophils 68.7 % (42.0-75.0); Hematocrit 31.1 % (36.0-47.0); Hemoglobin 9.9 g/dL (12.0-16.0); Mean Corpuscular HGB CONC 31.8 g/dL (32.0-36.0); Mean Corpuscular Volume 91.2 fL (78.0-98.0); Mean Platelet Volume 11.1 fL (7.4-10.4); Platelet Count 228 10x3/uL (130-400); RBC Distribution Width 14.8 % (11.5-14.5); Red Blood Cell (RBC) Count 3.41 mill/uL (4.20-5.40)
[2023-10-07 07:09] LABS: ALT (SGPT) 25 U/L (8-55); AST (SGOT) 30 U/L (5-34); Alkaline Phosphatase 71 U/L (40-110); Anion Gap 15 mmol/L (10-20); BUN (Urea Nitrogen) 7 mg/dL (9.8-20.1); Bilirubin, Total 0.3 mg/dL (0.2-1.2); Calc. Creatinine Clearance 111 mL/min (70-130); Calcium 8.8 mg/dL (7.8-10.44); Carbon Dioxide 21 mmol/L (23-31); Chloride 104 mmol/L (98-107); Estimated GFR 94; Globulin 5.1 g/dL (2.4-3.5); Glucose 107 mg/dL (83-110); Potassium 5.1 mmol/L (3.5-5.1); Protein, Total 7.1 g/dL (5.8-8.1); Sodium 135 mmol/L (136-145)
[2023-10-07] MEDS: Linezolid 600 MG TAB PO SCH ×2 (12:09→20:36)
[2023-10-07] MEDS: Calcium Carbonate 500 MG ChewTAB PO PRN (17:32)
[2023-10-08 12:41] LABS: #Basophils 0.06 10x3/uL (0.0-0.2); %Basophils 0.4 % (0.0-1.0); %Lymphocytes 14.4 % (21.0-51.0); %Monocytes 9.3 % (0.0-10.0); %Neutrophils 71.5 % (42.0-75.0); Hematocrit 29.8 % (36.0-47.0); Hemoglobin 9.9 g/dL (12.0-16.0); Mean Corpuscular HGB CONC 33.2 g/dL (32.0-36.0); Mean Corpuscular Hemoglobin 28.8 pg (27.0-31.0); Mean Corpuscular Volume 86.6 fL (78.0-98.0); Mean Platelet Volume 9.3 fL (7.4-10.4); Platelet Count 366 10x3/uL (130-400); RBC Distribution Width 14.4 % (11.5-14.5); Red Blood Cell (RBC) Count 3.44 mill/uL (4.20-5.40)
[2023-10-08 13:03] LABS: ALT (SGPT) 25 U/L (8-55); AST (SGOT) 29 U/L (5-34); Albumin 2.2 g/dL (3.4-4.8); Alkaline Phosphatase 77 U/L (40-110); Anion Gap 15 mmol/L (10-20); BUN (Urea Nitrogen) 10 mg/dL (9.8-20.1); Bilirubin, Total 0.3 mg/dL (0.2-1.2); Calc. Creatinine Clearance 100 mL/min (70-130); Calcium 9.2 mg/dL (7.8-10.44); Carbon Dioxide 22 mmol/L (23-31); Chloride 104 mmol/L (98-107); Estimated GFR 92; Globulin 4.8 g/dL (2.4-3.5); Glucose 120 mg/dL (83-110); Potassium 3.9 mmol/L (3.5-5.1); Sodium 137 mmol/L (136-145)
[2023-10-09 06:59] LABS: #Basophils 0.06 10x3/uL (0.0-0.2); %Basophils 0.6 % (0.0-1.0); %Eosinophils 2.2 % (0.0-10.0); %Lymphocytes 14.5 % (21.0-51.0); %Neutrophils 68.4 % (42.0-75.0); Hematocrit 28.1 % (36.0-47.0); Hemoglobin 9.5 g/dL (12.0-16.0); Mean Corpuscular HGB CONC 33.8 g/dL (32.0-36.0); Mean Corpuscular Hemoglobin 29.1 pg (27.0-31.0); Mean Corpuscular Volume 86.2 fL (78.0-98.0); Mean Platelet Volume 9.2 fL (7.4-10.4); Platelet Count 414 10x3/uL (130-400); Red Blood Cell (RBC) Count 3.26 mill/uL (4.20-5.40)
[2023-10-09 14:41] VITALS: BMI 32.1
[2023-10-10 04:25] LABS: #Basophils 0.05 10x3/uL (0.0-0.2); %Basophils 0.4 % (0.0-1.0); %Eosinophils 2.4 % (0.0-10.0); %Lymphocytes 12.4 % (21.0-51.0); %Monocytes 10.5 % (0.0-10.0); %Neutrophils 72.4 % (42.0-75.0); Hematocrit 29.7 % (36.0-47.0); Hemoglobin 9.9 g/dL (12.0-16.0); Mean Corpuscular HGB CONC 33.3 g/dL (32.0-36.0); Mean Corpuscular Hemoglobin 29.1 pg (27.0-31.0); Mean Corpuscular Volume 87.4 fL (78.0-98.0); Mean Platelet Volume 8.9 fL (7.4-10.4); Platelet Count 453 10x3/uL (130-400); RBC Distribution Width 14.2 % (11.5-14.5)
[2023-10-10 09:17] LABS: Anion Gap 18 mmol/L (10-20); BUN (Urea Nitrogen) 7 mg/dL (9.8-20.1); Calc. Creatinine Clearance 97 mL/min (70-130); Carbon Dioxide 21 mmol/L (23-31); Chloride 105 mmol/L (98-107); Estimated GFR 91; Glucose 94 mg/dL (83-110); Potassium 4.1 mmol/L (3.5-5.1); Sodium 140 mmol/L (136-145)
[2023-10-11 04:59] VITALS: BP 137/75
[2023-10-11 06:05] LABS: #Basophils 0.04 10x3/uL (0.0-0.2); %Basophils 0.4 % (0.0-1.0); %Eosinophils 3.5 % (0.0-10.0); %Lymphocytes 14.5 % (21.0-51.0); %Monocytes 9.4 % (0.0-10.0); %Neutrophils 71.3 % (42.0-75.0); Hematocrit 28.7 % (36.0-47.0); Hemoglobin 9.4 g/dL (12.0-16.0); Mean Corpuscular HGB CONC 32.8 g/dL (32.0-36.0); Mean Corpuscular Hemoglobin 29.5 pg (27.0-31.0); Mean Platelet Volume 8.6 fL (7.4-10.4); Platelet Count 501 10x3/uL (130-400); RBC Distribution Width 14.5 % (11.5-14.5); Red Blood Cell (RBC) Count 3.19 mill/uL (4.20-5.40)
[2023-10-11 06:21] LABS: Anion Gap 13 mmol/L (10-20); BUN (Urea Nitrogen) 6 mg/dL (9.8-20.1); Calc. Creatinine Clearance 102 mL/min (70-130); Calcium 9.3 mg/dL (7.8-10.44); Carbon Dioxide 23 mmol/L (23-31); Chloride 105 mmol/L (98-107); Estimated GFR 92; Glucose 113 mg/dL (83-110); Potassium 3.9 mmol/L (3.5-5.1); Sodium 137 mmol/L (136-145)
[2023-10-11 09:43] VITALS: TEMP 97.7
== END 2023-10-11 13:46 | DRG 637 ==
LOC: ERS 13:52 → SJJU 17:23 → OBSVTOIN 09-18 13:04 → IMCU/EMU 09-22 18:53 → SURG B 09-24 14:42 → IMCU/EMU 09-27 22:40 → CCU 09-28 11:55 → IMCU/EMU 09-30 00:05 → SURG A 10-01 21:54
PROVIDERS: ADMIT Student in an Organized Health Care Education/Training Program; ATTEND Internal Medicine
PROC: 4A00X4Z Measurement of Central Nervous Electrical Activity, External Approach (ICD-10-PCS; principal; 2023-09-28)
PROC: 4A033R1 Measurement of Arterial Saturation, Peripheral, Percutaneous Approach (ICD-10-PCS; 2023-09-28)
PROC: 0H97XZZ Drainage of Abdomen Skin, External Approach (ICD-10-PCS; 2023-10-05)
DX: E11.628 Type 2 diabetes mellitus with other skin complications (principal); G93.41 Metabolic encephalopathy; J69.0 Pneumonitis due to inhalation of food and vomit; M86.172 Other acute osteomyelitis, left ankle and foot; K56.7 Ileus, unspecified; E22.2 Syndrome of inappropriate secretion of antidiuretic hormone; E87.20 Acidosis, unspecified; E11.69 Type 2 diabetes mellitus with other specified complication; L03.032 Cellulitis of left toe; M79.3 Panniculitis, unspecified; E78.5 Hyperlipidemia, unspecified; K21.9 Gastro-esophageal reflux disease without esophagitis; Z79.899 Other long term (current) drug therapy; Z79.4 Long term (current) use of insulin; Z88.1 Allergy status to other antibiotic agents; Z88.5 Allergy status to narcotic agent; M19.90 Unspecified osteoarthritis, unspecified site; Z90.710 Acquired absence of both cervix and uterus; Z90.89 Acquired absence of other organs; K59.00 Constipation, unspecified; E66.9 Obesity, unspecified; Z68.32 Body mass index [BMI] 32.0-32.9, adult; E87.5 Hyperkalemia; E83.52 Hypercalcemia; N18.30 Chronic kidney disease, stage 3 unspecified; E11.22 Type 2 diabetes mellitus with diabetic chronic kidney disease; I12.9 Hypertensive chronic kidney disease with stage 1 through stage 4 chronic kidney disease, or unspecified chronic kidney disease; D63.1 Anemia in chronic kidney disease; N17.9 Acute kidney failure, unspecified
CPT/HCPCS: 36415; 36416; 36600; 70450; 70496; 70498; 70551; 71045; 74018; 74177; 74230; 76700; 76705; 80048; 80053; 81001; 82140; 82533; 82805; 83036; 83605; 83735; 83880; 83930; 83935; 84100; 84145; 84300; 84443; 85025; 85610; 85730; 86141; 87040; 93005; 93010; 93306; 95816; 95819; 96365; 96366; 96367; 96372; 96375; 96376; 97139; C9113; G0378; J0456; J0457; J0692; J1650; J1815; J1940; J2001; J2020; J2270; J2405; J2765; J3370; J3475; J3480; J3490; J7050; J7120; J7999; Q0162; Q9967